=== PATIENT | male | born 1975 | race Caucasian/White ===

== ENCOUNTER 2018-06-05 12:28 | Inpatient (IN) | payer BC, OTHER ==
[2018-06-05 12:43] VITALS: BMI 37.2
--- NOTE | 2018-06-05 13:43 | PDOC ---
History of Present Illness <Marina Kingston - Last Filed: 06/05/18 16:17> - History of Present Illness Initial Comments: Vishal Avila is a 42yo man with a PMH of gastric bypass (3 years ago), uncontrolled DM (not on meds, A1C 8.9 on 06/01/18), HTN (not on meds) who presents from his development technical lead's office for a left plantar foot wound. Mr Avila reports that he noticed the wound between 1-2 weeks ago. Last Tuesday, he went to the ED at [facility] for evaluation. He was told that the wound was "pre-infected" and prescribed an antibiotic, which he has since completed. He went to see his development technical lead on , and at that time he was told that he would need an outpatient MRI for evaluation. He was prescribed a second, additional antibiotic, which he is sitll completing. Mr Avila does not remember the names of either antibiotic. Today, he went back to the development technical lead's office for follow up, and he saw a different development technical lead. He was referred to the ED for admission to the hospital as well as ID and vascular surgery consults. Mr Avila states that he has noticed that the wound is draining clear to yellowish fluid and is malodorous. He does not remember any injury or insult to the foot prior to the wound occurring. He has never noticed any purulent (white , thick, cloudy) drainage. He has not noticed any surrounding redness, red streaking, or swelling. He denies any fevers though does note shaking chills a week ago Tuesday prior to starting antibiotics, and he reports that this is also what happened when he had staph bacteremia due to a right foot wound last year. Otherwise he has felt well recently. <Amberly Moore - Last Filed: 06/06/18 00:38> - General Chief Complaint: Wound Stated Complaint: PCP SENT FOR ADMIN Time Seen by Provider: 06/05/18 13:42 Past History <Marina Kingston - Last Filed: 06/05/18 16:17> - Past Medical History COPD: No Diabetes: Yes (no meds, chr wounds both feet) Other medical history: pancreatitis, meningitis, renal stones - Surgical History Appendectomy: Yes GI Surgery: Yes (gastric bypass) - Suicide/Smoking/Psychosocial Hx Smoking History: Never smoked <Amberly Moore - Last Filed: 06/06/18 00:38> - Past Medical History Allergies/Adverse Reactions: Allergies Allergy/AdvReac Type Severity Reaction Status Date / Time No Known Allergies Allergy Verified 06/05/18 12:41 Home Medications: Ambulatory Orders NK [No Known Home Medication] 06/05/18 Review of Systems - Review of Systems Comments:: General: No fevers, no chills, no weight or appetite change, no malaise HEENT: No changes in vision, no changes in hearing, no congestion, no sore throat CV: No chest pain, no palpitations, no LE edema Pulm: No SOB, no cough, no wheezing GI: No nausea or vomiting, no change in bowel habits, no melena : No frequency, no urgency, no dysuria Musc: No back pain, no joint swelling, no recent injury Skin: No rash, no lesions, no erythema Endo: No excessive thirst, no heat/cold intolerance Heme: No unusual bruising or bleeding, no swollen glands Neuro: No syncope, no numbness/tingling, no focal weakness Vasc: No claudication Psych: No recent change in mood, no SI or HI. +anxiety <Amberly Moore - Last Filed: 06/06/18 00:38> *Physical Exam - Vital Signs Last Vital Signs Temp Pulse Resp BP Pulse Ox 98 F 82 16 170/92 97 06/05/18 12:42 06/05/18 12:42 06/05/18 12:42 06/05/18 12:42 06/05/18 12:42 <Marina Kingston - Last Filed: 06/05/18 16:17> - Vital Signs Last Vital Signs Temp Pulse Resp BP Pulse Ox 98 F 82 16 170/92 97 06/05/18 12:42 06/05/18 12:42 06/05/18 12:42 06/05/18 12:42 06/05/18 12:42 - Physical Exam Comments: General: Comfortable, no acute distress HEENT: PERRL, EOMI, MMM, voice normal, normal neck ROM, no LAD Cards: RRR, no murmur appreciated Pulm: Comfortable on room air, clear to auscultation bilaterally Abd: Soft, nontender, nondistended Ext: Atraumatic. No LE edema. ROM intact. Strength 5/5 and equal bilaterally L foot with wound to plantar surface, proximal to 2nd toe, appears to be superficial to tarsal-metatarsal joint. Thick callus surrounding wound. Minimal drainage. No surrounding erythema or edema noted. Vasc: Extremities WWP. Skin: Normal color, no rashes or lesions. L foot wound as described above. Neuro: A&Ox3, CN grossly intact, normal speech, motor/sensory grossly intact and symmetric Psych: Mood appropriate to situation <Amberly Moore - Last Filed: 06/06/18 00:38> ED Treatment Course - LABORATORY CBC & Chemistry Diagram: 06/05/18 14:43 06/05/18 14:43 - ADDITIONAL ORDERS Additional order review: Laboratory Results 06/05/18 14:43 Sodium 140 Potassium 4.6 Chloride 103 Carbon Dioxide 29 Anion Gap 8 BUN 17 Creatinine 0.8 Creat Clearance w eGFR > 60 Random Glucose 207 H Calcium 9.1 Total Bilirubin 0.6 AST 19 ALT 47 Alkaline Phosphatase 105 C-Reactive Protein 0.5 H Total Protein 8.1 Albumin 3.8 06/05/18 14:43 RBC 5.00 MCV 84.9 MCHC 33.0 RDW 13.6 MPV 9.5 Neutrophils % 66.6 Lymphocytes % 22.1 Monocytes % 7.4 Eosinophils % 3.2 Basophils % 0.7 - Medications Given in the ED: ED Medications Discontinued Medications Generic Name Dose Route Start Last Admin Trade Name Freq PRN Reason Stop Dose Admin Piperacillin Sod/Tazobactam 50 mls @ 100 mls/hr 06/05/18 15:38 06/05/18 15:55 Sod 3.375 gm/ Dextrose IVPB 06/05/18 16:07 100 mls/hr ONCE ONE Administration Protocol - Consult/PCP Time Called: 16:05 (Paged Dr. Romero) <Marina Kingston - Last Filed: 06/05/18 16:17> - LABORATORY CBC & Chemistry Diagram: 06/05/18 14:43 06/05/18 14:43 <Amberly Moore - Last Filed: 06/06/18 00:38> Medical Decision Making - Medical Decision Making 06/05/18 14:30 Vishal Avila is a 42yo man with a PMH of uncontrolled DM and HTN who presents from his development technical lead's office for workup of a left plantar diabetic foot wound. - Lab report from 06/01 (brought by patient) with WBC 8.7, ESR 45, CRP 14.5, A1C 8.9 - CBC, CMP, ESR, CRP, foot xray, blood cultures ordered - Per development technical lead, would like admission to Dr Romero's service with ID, wound care, and Dr Hansen on consult - Will contact Dr Romero and consults once lab results return 06/05/18 15:45 - Page out to Dr Romero. Consults placed - Zosyn started per Dr Vera - Labs notable for CRP 0.5 (compared to 1.45 on 06/01) 06/05/18 17:38 - Spoke to Dr Romero. Will accept for admission. Requests Dr Khan for ID - Patient updated regarding admission. He states understanding and agrees. Seen and discussed with Dr Vera. Amberly Mooer PGY1 <Amberly Moore - Last Filed: 06/06/18 00:38> *DC/Admit/Observation/Transfer <Marina Kingston - Last Filed: 06/05/18 16:17> - Discharge Dispostion Decision to Admit order: Yes <Amberly Moore - Last Filed: 06/06/18 00:38> Diagnosis at time of Disposition: Diabetic foot ulcer
--- NOTE | 2018-06-05 14:56 | PDOC ---
Attending Attestation - Resident Resident Name: Amberly Moore - ED Attending Attestation I have performed the following: I have examined & evaluated the patient, The case was reviewed & discussed with the resident, I agree w/resident's findings & plan, Exceptions are as noted - Medical Decision Making 06/05/18 14:56 A portion of this note was documented by scribe services under my direction. I have reviewed the details of the note, within reason, and agree with the documentation with the following case summary and management plan written by me. Patient treated in the ED. Nursing notes are reviewed and incorporated into the medical decision-making. Vital signs reviewed. Peripheral IV access obtained by the nurse, laboratory studies are drawn and sent, reviewed and interpreted by myself. Vital Signs Temp Pulse Resp BP Pulse Ox 98 F 82 16 170/92 97 06/05/18 12:42 06/05/18 12:42 06/05/18 12:42 06/05/18 12:42 06/05/18 12:42 42-year-old male with past medical history of gastric bypass, hypertension, diabetes presents with left foot wound. Last week, the patient developed a blister on the plantar surface left foot was initiate blister. Patient was unsure of how it occurred. Stated it popped open. Since then he's been on 2 antibiotics but the wound has progressively worsened. Patient has seen his aluminum siding installer, Dr. Hansen was sent the patient to the ER for a foot infection and rule out osteoarthritis. Denies fevers or chills. We'll obtain labs including ESR CRP and blood cultures. We'll need to initiate IV antibiotics. Admit the patient for foot infection and cellulitis. <Toi Vera - Last Filed: 06/05/18 14:48> - HPI HPI: This patient is a 42 year old male , with PMHx of DM (not medically controlled) , HTN, who presents with left foot wound. Patient states that 1 week ago he went to the ER at [facility] for his left foot wound. In the past, patient notes that last January he was admitted for an infection in his right foot. He was d/c on oral antibiotics for a month. Patient states that his diabetes levels were at a 5-6 when he was last admitted but currently he is at an 8. Currently, he states that the wound is on the bottom of his left foot and initially looked like a blister that had popped. He notes some foul-smelling clear fluid drainage. He states that he was give antibiotics but he does not remember the name. He states that he followed up with a Animal Eviscerator at [place] last who gave him an additional antibiotic and was told to complete both courses. He was told come to the ER for admission and r/o osteomyelitis. He also currently notes a pulsing pain on his 2nd left toe. He states he hasnt eaten anything except for yogurt this morning with his antibiotics. Podiatry - Dr. Brewer PCP: Dr. Dewey ([facility]) Admit to Dr. Romero. ID - Dr. Iglesias - Physicial Exam PE: GENERAL: Awake, alert, and fully oriented, in no acute distress HEAD: No signs of trauma EYES: PERRLA, EOMI, sclera anicteric, conjunctiva clear ABDOMEN: Soft, nontender. No guarding, no rebound. No masses EXTREMITIES: Normal range of motion, no edema. No clubbing or cyanosis. No cords, erythema, or tenderness NEUROLOGICAL: Cranial nerves II through XII grossly intact. Normal speech, normal gait SKIN: 3x3 cm indurated open wound with surrounding errythema on plantar surface of left foot. <Marina Kingston - Last Filed: 06/05/18 15:28>
[2018-06-05 15:03] LABS: BASO % 0.7 % (0-2.0); EOS % 3.2 % (0-4.5); HEMATOCRIT 42.4 % (35.4-49); LYMPH % 22.1 % (8-40); MEAN CELL VOLUME 84.9 fl (80-96); MEAN PLT VOLUME 9.5 fl (7.5-11.1); MONO % 7.4 % (3.8-10.2); NEUT % 66.6 % (42.8-82.8); PLATELET COUNT 258 K/MM3 (134-434); RDW 13.6 % (11.9-15.9); WHITE BLOOD COUNT 9.1 K/mm3 (4.0-10.0)
[2018-06-05 15:30] LABS: ALBUMIN 3.8 g/dl (3.4-5.0); ALK PHOS 105 U/L (45-117); ANION GAP 8 MMOL/L (8-16); BILIRUBIN,TOTAL 0.6 mg/dL (0.2-1); BLOOD UREA NITROGEN 17 mg/dL (7-18); CALCIUM 9.1 mg/dL (8.5-10.1); CHLORIDE 103 mmol/L (98-107); CO2 29 mmol/L (21-32); CREATININE 0.8 mg/dL (0.55-1.3); GLUCOSE,RANDOM 207 mg/dL (74-106); POTASSIUM 4.6 mmol/L (3.5-5.1); SGOT/AST 19 U/L (15-37); SGPT/ALT 47 U/L (13-61); SODIUM 140 mmol/L (136-145); TOT PROT 8.1 g/dl (6.4-8.2)
[2018-06-05] MEDS ORDERED: PIPERACILLIN/TAZOB 3.375 GM 3.375 GM in DEXTROSE 5%-WATER - 50 ML IVPB ONE (15:38)
[2018-06-05] MEDS ORDERED: PIPERACILLIN/TAZOB 3.375 GM 3.375 GM/50 ML BAG IVPB ONE (15:45)
[2018-06-05 16:50] LABS: ERYTHROCYTE SEDIMENTATION RATE 27 mm/hr (0-10)
--- NOTE | 2018-06-05 21:06 | HP ---
Admitting History and Physical - Admission History of Present Illness: 42-year-old male with past medical history of gastric bypass, hypertension, DM since age of 21, diabetic neuropathy presents with left foot wound. Last week, the patient developed a blister on the plantar surface left foot. Patient was unsure of how it occurred. Stated it popped open. Since then he's been on 2 antibiotics but the wound has progressively worsened, and developed foul smelling d/c. Patient has seen his jewelry setter, Dr. Hansen was sent the patient to the ER for a foot infection and rule out osteomyelitis. Patient reports episode of shaking chills on Tuesday SHIP JOINER, while walking around in [facility]. Denies fever. History Source: Patient, Medical Record Limitations to Obtaining History: No Limitations - Past Medical History Cardiovascular: Yes: Murmur Gastrointestinal: Yes: Pancreatitis (2/2 to hyperlipedimia ( trig >5000)) Infectious Disease: Yes: Other (lymes) Psych: Yes: Anxiety Endocrine: Yes: Diabetes Mellitus - Past Surgical History Past Surgical History: Yes: Appendectomy, Bariatric Surgery - Smoking History Smoking history: Never smoked - Alcohol/Substance Use Hx Alcohol Use: Yes History of Substance Use: reports: None - Social History Usual Living Arrangement: Yes: With Significant Other ADL: Family Assistance History of Recent Travel: No Home Medications - Allergies Allergies/Adverse Reactions: Allergies Allergy/AdvReac Type Severity Reaction Status Date / Time No Known Allergies Allergy Verified 06/05/18 12:41 - Home Medications Home Medications: Ambulatory Orders NK [No Known Home Medication] 06/05/18 Review of Systems - Review of Systems Constitutional: reports: Chills, Malaise. denies: Fever, Night Sweats Eyes: reports: No Symptoms HENT: reports: No Symptoms Neck: reports: No Symptoms Cardiovascular: reports: No Symptoms Respiratory: reports: No Symptoms Gastrointestinal: reports: No Symptoms Genitourinary: reports: No Symptoms Breasts: reports: No Symptoms Reported Musculoskeletal: reports: No Symptoms Integumentary: reports: Wound (plantar aspect of left foot) Neurological: reports: No Symptoms Endocrine: reports: No Symptoms Hematology/Lymphatic: reports: No Symptoms Psychiatric: reports: No Symptoms Physical Examination Vital Signs: Vital Signs Temperature 97.3 F L 06/05/18 18:00 Pulse Rate 80 06/05/18 18:00 Respiratory Rate 18 06/05/18 18:00 Blood Pressure 153/100 06/05/18 18:00 O2 Sat by Pulse Oximetry (%) 97 06/05/18 18:00 Constitutional: Yes: Well Nourished, No Distress, Obese Eyes: Yes: Conjunctiva Clear, EOM Intact HENT: Yes: Atraumatic, Normocephalic Neck: Yes: Supple, Trachea Midline Cardiovascular: Yes: Regular Rate and Rhythm Respiratory: Yes: Regular Gastrointestinal: Yes: Normal Bowel Sounds ...Rectal Exam: Yes: Deferred Renal/: Yes: WNL Breast(s): Yes: WNL Musculoskeletal: Yes: WNL Extremities: Yes: WNL, Other (plantar aspect of left foot open wound --) Edema: No Peripheral Pulses WNL: Yes Peripheral Pulses: Left Radial: 2+, Right Radial: 2+, Left Doralis Pedis: 1+, Right Dorsalis Pedis: 1+, Left Femoral: 2+, Right Femoral: 2+ Integumentary: Yes: WNL Wound/Incision: Yes: Open to air. No: Draining, Reddened, Bleeding Neurological: Yes: WNL ...Motor Strength: WNL Psychiatric: Yes: WNL Labs: CBC, BMP 06/05/18 14:43 06/05/18 14:43 Problem List - Problems (1) Diabetic foot ulcer Code(s): E11.621 - TYPE 2 DIABETES MELLITUS WITH FOOT ULCER; L97.509 - NON- PRESSURE CHRONIC ULCER OTH PRT UNSP FOOT W UNSP SEVERITY Qualifiers: Diabetic foot ulcer location: other Diabetes mellitus type: type 2 Laterality: left (2) Diabetes mellitus Code(s): E11.9 - TYPE 2 DIABETES MELLITUS WITHOUT COMPLICATIONS Qualifiers: Diabetes mellitus type: type 2 Diabetes mellitus intermediate insulin use: with terminal system operator use Diabetes mellitus complication detail: with other skin ulcer (3) Neuropathy due to type 2 diabetes mellitus Code(s): E11.40 - TYPE 2 DIABETES MELLITUS WITH DIABETIC NEUROPATHY, UNSP (4) Obesity Code(s): E66.9 - OBESITY, UNSPECIFIED Qualifiers: Obesity type: due to excess calories Obesity classification: adult class 1 (BMI 30 - 34.9) Serious obesity comorbidity presence: with serious comorbidity
[2018-06-05] MEDS: DOCUSATE SODIUM 100 MG CAPSULE (FP) PO SCH (23:34)
[2018-06-06] MEDS: INSULIN SLIDING SCALE (NOVOLOG) 1 VIAL SQ SCH ×2 (06:18→17:27)
[2018-06-06 08:12] LABS: HEMATOCRIT 39.5 % (35.4-49); HEMOGLOBIN 12.9 GM/dL (11.7-16.9); MCH 27.5 pg (25.7-33.7); MCHC 32.6 g/dl (32.0-35.9); MEAN CELL VOLUME 84.3 fl (80-96); MEAN PLT VOLUME 9.5 fl (7.5-11.1); PLATELET COUNT 235 K/MM3 (134-434); RBC 4.69 M/mm3 (4.00-5.60); RDW 13.4 % (11.9-15.9)
[2018-06-06 08:37] LABS: ANION GAP 8 MMOL/L (8-16); BLOOD UREA NITROGEN 18 mg/dL (7-18); CALCIUM 8.5 mg/dL (8.5-10.1); CHLORIDE 103 mmol/L (98-107); CO2 29 mmol/L (21-32); GLUCOSE,RANDOM 221 mg/dL (74-106); POTASSIUM 4.5 mmol/L (3.5-5.1); SODIUM 140 mmol/L (136-145)
[2018-06-06] MEDS: DOCUSATE SODIUM 100 MG CAPSULE (FP) PO SCH ×3 (10:41→21:04)
--- NOTE | 2018-06-06 10:43 | PN ---
Progress Note (short form) - Note Progress Note: patient seen and examined in room he is able provides complete information / known to be Diabetic since age of 21 and persistently elevated A1c ( about 14 ) until bypass surgery 3 yrs ago. Since his bariatric surgery he has maintained A1c between 5-6, until recently. He reports has lost feeling in his legs, for many years now, and has had eye problem "already", for which he follows up with opthalmology. Admits poor compliance with diet and medications of last yr. patient found laying in bed / comfortable / denies pain Vital Signs Period Temp Pulse Resp BP Sys/Membreno Pulse Ox Last 24 Hr 97.3 F-98.3 F 74-82 16-20 137-170/76-100 97-97 neck supple no nodes heart S1/S2 2/6 DENIS lungs clear bilat abd obese/ soft non tender / no guarding ext no edema +1 bilat dorsalis left for plantar aspect open wound about 1 cm in diameter / non foul smelling no erythema / no streaking CBC, BMP 06/06/18 07:00 06/06/18 07:00 Laboratory Last Values WBC 9.0 K/mm3 (4.0-10.0) 06/06/18 07:00 RBC 4.69 M/mm3 (4.00-5.60) 06/06/18 07:00 Hgb 12.9 GM/dL (11.7-16.9) 06/06/18 07:00 Hct 39.5 % (35.4-49) 06/06/18 07:00 MCV 84.3 fl (80-96) 06/06/18 07:00 MCH 27.5 pg (25.7-33.7) 06/06/18 07:00 MCHC 32.6 g/dl (32.0-35.9) 06/06/18 07:00 RDW 13.4 % (11.9-15.9) 06/06/18 07:00 Plt Count 235 K/MM3 (134-434) 06/06/18 07:00 MPV 9.5 fl (7.5-11.1) 06/06/18 07:00 Absolute Neuts (auto) 6.1 K/mm3 (1.5-8.0) 06/05/18 14:43 Neutrophils % 66.6 % (42.8-82.8) 06/05/18 14:43 Lymphocytes % 22.1 % (8-40) 06/05/18 14:43 Monocytes % 7.4 % (3.8-10.2) 06/05/18 14:43 Eosinophils % 3.2 % (0-4.5) 06/05/18 14:43 Basophils % 0.7 % (0-2.0) 06/05/18 14:43 Nucleated RBC % 0 % (0-0) 06/05/18 14:43 ESR 27 mm/hr (0-10) H 06/05/18 14:43 Sodium 140 mmol/L (136-145) 06/06/18 07:00 Potassium 4.5 mmol/L (3.5-5.1) 06/06/18 07:00 Chloride 103 mmol/L (98-107) 06/06/18 07:00 Carbon Dioxide 29 mmol/L (21-32) 06/06/18 07:00 Anion Gap 8 MMOL/L (8-16) 06/06/18 07:00 BUN 18 mg/dL (7-18) 06/06/18 07:00 Creatinine 1.0 mg/dL (0.55-1.3) 06/06/18 07:00 Creat Clearance w eGFR > 60 (>60) 06/06/18 07:00 POC Glucometer 215 UNITS (80-120) 06/06/18 06:17 Random Glucose 221 mg/dL (74-106) H 06/06/18 07:00 Lactic Acid 1.2 mmol/L (0.4-2.0) 06/05/18 15:08 Calcium 8.5 mg/dL (8.5-10.1) 06/06/18 07:00 Magnesium 2.0 mg/dL (1.8-2.4) 06/06/18 07:00 Total Bilirubin 0.6 mg/dL (0.2-1) 06/05/18 14:43 AST 19 U/L (15-37) 06/05/18 14:43 ALT 47 U/L (13-61) 06/05/18 14:43 Alkaline Phosphatase 105 U/L (45-117) 06/05/18 14:43 C-Reactive Protein 0.5 MG/DL (0.00-0.3) H 06/05/18 14:43 Total Protein 8.1 g/dl (6.4-8.2) 06/05/18 14:43 Albumin 3.8 g/dl (3.4-5.0) 06/05/18 14:43 Active Medications Docusate Sodium (Colace -) 200 mg PO BID [facility] Last Admin: 06/05/18 23:34 Dose: Not Given Insulin Aspart (Novolog Vial Sliding Scale -) 1 vial SQ BIDAC [facility]; Protocol Last Admin: 06/06/18 06:18 Dose: 4 units # diabetic foot ulcer failure of PO abx IV abx per ID podiatry follow up Vascular consult # Diabetes Mellitus start PO meds statins / ACEi / metformin A1c diabetic education # hyperlipedimia start statins # Diabetic neuropathy goal to maintain A1c = 6 Problem List - Problems (1) Diabetic foot ulcer Code(s): E11.621 - TYPE 2 DIABETES MELLITUS WITH FOOT ULCER; L97.509 - NON- PRESSURE CHRONIC ULCER OTH PRT UNSP FOOT W UNSP SEVERITY Qualifiers: Diabetic foot ulcer location: other Diabetes mellitus type: type 2 Laterality: left (2) Diabetes mellitus Code(s): E11.9 - TYPE 2 DIABETES MELLITUS WITHOUT COMPLICATIONS Qualifiers: Diabetes mellitus type: type 2 Diabetes mellitus snf insulin use: with snf use Diabetes mellitus complication detail: with other skin ulcer (3) Neuropathy due to type 2 diabetes mellitus Code(s): E11.40 - TYPE 2 DIABETES MELLITUS WITH DIABETIC NEUROPATHY, UNSP (4) Obesity Code(s): E66.9 - OBESITY, UNSPECIFIED Qualifiers: Obesity type: due to excess calories Obesity classification: adult class 1 (BMI 30 - 34.9) Serious obesity comorbidity presence: with serious comorbidity
[2018-06-06] MEDS: ASPIRIN 81 MG CHEWABLE TABLETS PO SCH (11:45)
[2018-06-06] MEDS: LISINOPRIL 5 MG TABLET (FP) PO SCH (11:45)
--- NOTE | 2018-06-06 12:55 | CONSULT ---
Consult Consult Specialty:: Vascular Surgery - History of Present Illness History of Present Illness: 42 year old man with diabetes and peripheral neuropathy is admitted with a plantar ulcer of the left foot. He had infection of the right otes last spring which required long-term IV antibiotics. He does not smoke. He denies a history of periheral arterial disease. He has no foot pain. - History Source History Provided By: Patient Limitations to Obtaining History: No Limitations - Past Medical History Cardio/Vascular: Yes: Murmur Gastrointestinal: Yes: Pancreatitis (2/2 to hyperlipedimia ( trig >5000)) Infectious Disease: Yes: Other (lymes) Psych: Yes: Anxiety Endocrine: Yes: Diabetes Mellitus - Past Surgical History Past Surgical History: Yes: Appendectomy, Bariatric Surgery - Alcohol/Substance Use Hx Alcohol Use: Yes History of Substance Use: reports: None - Smoking History Smoking history: Never smoked - Social History ADL: Family Assistance History of Recent Travel: No Home Medications - Allergies Allergies/Adverse Reactions: Allergies Allergy/AdvReac Type Severity Reaction Status Date / Time No Known Allergies Allergy Verified 06/05/18 12:41 - Home Medications Home Medications: Ambulatory Orders NK [No Known Home Medication] 06/05/18 Physical Exam Vital Signs: Vital Signs Temperature 98.3 F 06/06/18 12:00 Pulse Rate 85 06/06/18 12:00 Respiratory Rate 19 06/06/18 12:00 Blood Pressure 140/79 06/06/18 12:00 O2 Sat by Pulse Oximetry (%) 99 06/06/18 09:00 Constitutional: Yes: Well Nourished, No Distress Cardiovascular: Yes: WNL Gastrointestinal: Yes: Soft Extremities: Yes: WNL Edema: No Peripheral Pulses WNL: Yes (Palpable DP and PT both feet) Integumentary: Yes: Other (Left plantar callused ulcer under 3rd metatarsal head with local erythema.) Labs: CBC, BMP 06/06/18 07:00 06/06/18 07:00 Problem List - Problems (1) Diabetic foot ulcer Assessment/Plan: There is no evidence for significant arterial disease at this time. The left plantar wound is related to his underlying diabetic neuropathy. There is no indication for vascular testing or intervention at this time. Code(s): E11.621 - TYPE 2 DIABETES MELLITUS WITH FOOT ULCER; L97.509 - NON- PRESSURE CHRONIC ULCER OTH PRT UNSP FOOT W UNSP SEVERITY Qualifiers: Diabetic foot ulcer location: other Diabetes mellitus type: type 2 Laterality: left Non-pressure ulcer stage: with fat layer exposed Qualified Code(s): E11.621 - Type 2 diabetes mellitus with foot ulcer; L97.522 - Non- pressure chronic ulcer of other part of left foot with fat layer exposed
--- NOTE | 2018-06-06 14:14 | CON.ID ---
Consult Consult Specialty:: infectious diseases Referred by:: Reason for Consultation:: r/o osteo of the foot - History of Present Illness Chief Complaint: non healing ulcer of the foot History of Present Illness: 42-year-old male with past medical history of gastric bypass, hypertension, DM since age of 21, diabetic neuropathy presents with left foot wound. Last week, the patient developed a blister on the plantar surface left foot. Patient was unsure of how it occurred. patient had seen multiple doctors and was given multiples abx patient then went to dr Hansen and he directed the patient to the hospital Patient reports episode of shaking chills on Tuesday [employer], he also mentions that he had foot infection of the rt leg previously which gave him bacteremia and patient had to be admitted in the hospital for nearly 9 days a he was very septic - History Source History Provided By: Patient Limitations to Obtaining History: No Limitations - Past Medical History Cardio/Vascular: Yes: Murmur Gastrointestinal: Yes: Pancreatitis (2/2 to hyperlipedimia ( trig >5000)) Infectious Disease: Yes: Other (lymes) Psych: Yes: Anxiety Endocrine: Yes: Diabetes Mellitus - Past Surgical History Past Surgical History: Yes: Appendectomy, Bariatric Surgery - Alcohol/Substance Use Hx Alcohol Use: Yes History of Substance Use: reports: None - Smoking History Smoking history: Never smoked - Social History ADL: Family Assistance History of Recent Travel: No Home Medications - Allergies Allergies/Adverse Reactions: Allergies Allergy/AdvReac Type Severity Reaction Status Date / Time No Known Allergies Allergy Verified 06/05/18 12:41 - Home Medications Home Medications: Ambulatory Orders NK [No Known Home Medication] 06/05/18 Review of Systems - Review of Systems Constitutional: reports: Chills Eyes: reports: No Symptoms HENT: reports: No Symptoms Neck: reports: No Symptoms Cardiovascular: reports: No Symptoms Respiratory: reports: No Symptoms Gastrointestinal: reports: No Symptoms Genitourinary: reports: No Symptoms Musculoskeletal: reports: Extremity Pain, Other Integumentary: reports: Erythema (of the plantar surface of the left foot), Wound (plantar surface of left foot) Neurological: reports: No Symptoms Endocrine: reports: No Symptoms Hematology/Lymphatic: reports: No Symptoms Psychiatric: reports: No Symptoms Physical Exam Vital Signs: Vital Signs Temperature 98.3 F 06/06/18 12:00 Pulse Rate 85 06/06/18 12:00 Respiratory Rate 19 06/06/18 12:00 Blood Pressure 140/79 06/06/18 12:00 O2 Sat by Pulse Oximetry (%) 99 06/06/18 09:00 Constitutional: Yes: Well Nourished, No Distress, Calm Cardiovascular: Yes: Regular Rate and Rhythm Respiratory: Yes: Regular, CTA Bilaterally Gastrointestinal: Yes: Normal Bowel Sounds, Soft Musculoskeletal: Yes: WNL Extremities: Yes: Other Integumentary: Yes: Other Wound/Incision: Yes: Open to air Neurological: Yes: Alert, Oriented Psychiatric: Yes: Alert, Oriented Labs: CBC, BMP 06/06/18 07:00 06/06/18 07:00 Imaging - Results X-ray: Report Reviewed, Image Reviewed Assessment/Plan patient coming wiht non healing ulcer of the left foot wound not healing for a long time now patient had chills feels better now r/o osteo left foot wound infection dm hld htn plan will start patient on zosyn wound cx ordered mri of the foot wound care once we have everything will plan further management
--- NOTE | 2018-06-06 14:32 | CONSULT ---
Consult Consult Specialty:: Podiatry Reason for Consultation:: Chronic wound left foot - History of Present Illness Chief Complaint: Chronic wound left foot History of Present Illness: Patient states he went to [facility] was put on antibiotics. Then was seen By Dr. Pastor and another antibiotic was added. Presented to me on Tuesday and was admitted for r/o OM, uncontrolled diabetes. - History Source History Provided By: Patient - Past Medical History Cardio/Vascular: Yes: Murmur Gastrointestinal: Yes: Pancreatitis (2/2 to hyperlipedimia ( trig >5000)) Infectious Disease: Yes: Other (lymes) Psych: Yes: Anxiety Endocrine: Yes: Diabetes Mellitus - Past Surgical History Past Surgical History: Yes: Appendectomy, Bariatric Surgery - Alcohol/Substance Use Hx Alcohol Use: Yes History of Substance Use: reports: None - Smoking History Smoking history: Never smoked - Social History ADL: Family Assistance History of Recent Travel: No Home Medications - Allergies Allergies/Adverse Reactions: Allergies Allergy/AdvReac Type Severity Reaction Status Date / Time No Known Allergies Allergy Verified 06/05/18 12:41 - Home Medications Home Medications: Ambulatory Orders NK [No Known Home Medication] 06/05/18 Review of Systems - Review of Systems Endocrine: reports: Other (uncontrolled diabetes) Physical Exam Vital Signs: Vital Signs Temperature 98.3 F 06/06/18 12:00 Pulse Rate 85 06/06/18 12:00 Respiratory Rate 19 06/06/18 12:00 Blood Pressure 140/79 06/06/18 12:00 O2 Sat by Pulse Oximetry (%) 99 06/06/18 09:00 Extremities: Yes: Other (wound left foot infected, +foul odor, +cellulitis,) Labs: CBC, BMP 06/06/18 07:00 06/06/18 07:00 Imaging - Results X-ray: Report Reviewed, Image Reviewed Assessment/Plan chronic diabetic wound left foot uncontrolled diabetes ID Consult Dr. Iglesias. Patient seen with him and tx plan discussed. Vascular consult done not read and appreciated. Endocrinology consult ordered. MRI. If OM HBO and IVABX. If no osteo will heal up with abx and wc and plan to shave condyles surgically outpatient.
[2018-06-06] MEDS: PIPERACILLIN/TAZOB 3.375 GM 3.375 GM in DEXTROSE 5%-WATER - 50 ML IVPB SCH ×2 (15:30→19:00)
[2018-06-06] MEDS ORDERED: DEXTROSE 5%-WATER - 50 ML IVPB ONE ×2 (15:49→17:04)
[2018-06-06] MEDS ORDERED: PIPERACILLIN/TAZOBACTAM 3.375 GM VIAL IVPB ONE ×2 (15:49→17:04)
[2018-06-06] MEDS: metFORMIN HCL 500 MG TABLET (FP) PO SCH (16:08)
[2018-06-06] MEDS: ATORVASTATIN CA 40 MG TABLET (FP) PO SCH (21:02)
[2018-06-07] MEDS ORDERED: DEXTROSE 5%-WATER - 50 ML IVPB ONE ×3 (01:50→16:53)
[2018-06-07] MEDS ORDERED: PIPERACILLIN/TAZOBACTAM 3.375 GM VIAL IVPB ONE ×3 (01:50→16:53)
[2018-06-07] MEDS: PIPERACILLIN/TAZOB 3.375 GM 3.375 GM in DEXTROSE 5%-WATER - 50 ML IVPB SCH ×3 (02:13→17:28)
[2018-06-07] MEDS: metFORMIN HCL 500 MG TABLET (FP) PO SCH ×2 (06:32→17:22)
[2018-06-07] MEDS: INSULIN SLIDING SCALE (NOVOLOG) 1 VIAL SQ SCH ×3 (06:33→21:20)
[2018-06-07 08:03] LABS: BASO % 0.5 % (0-2.0); EOS % 3.3 % (0-4.5); HEMATOCRIT 40.3 % (35.4-49); LYMPH % 25.2 % (8-40); MCH 27.7 pg (25.7-33.7); MCHC 32.3 g/dl (32.0-35.9); MEAN CELL VOLUME 85.5 fl (80-96); MEAN PLT VOLUME 9.6 fl (7.5-11.1); PLATELET COUNT 238 K/MM3 (134-434); RBC 4.71 M/mm3 (4.00-5.60); RDW 13.7 % (11.9-15.9); WHITE BLOOD COUNT 9.9 K/mm3 (4.0-10.0)
[2018-06-07 08:34] LABS: ALBUMIN 3.3 g/dl (3.4-5.0); ALK PHOS 91 U/L (45-117); ANION GAP 6 MMOL/L (8-16); BILIRUBIN,TOTAL 0.6 mg/dL (0.2-1); BLOOD UREA NITROGEN 16 mg/dL (7-18); CALCIUM 8.7 mg/dL (8.5-10.1); CHLORIDE 102 mmol/L (98-107); CHOLESTEROL 184 mg/dL (50-200); CO2 30 mmol/L (21-32); GLUCOSE,RANDOM 218 mg/dL (74-106); HDL CHOLESTEROL 36 mg/dL (40-60); POTASSIUM 4.5 mmol/L (3.5-5.1); SGOT/AST 14 U/L (15-37); SGPT/ALT 37 U/L (13-61); SODIUM 138 mmol/L (136-145); TOT PROT 7.1 g/dl (6.4-8.2); TRIGLYCERIDES 199 mg/dL (0-150)
[2018-06-07] MEDS: ASPIRIN 81 MG CHEWABLE TABLETS PO SCH (10:11)
[2018-06-07] MEDS: LISINOPRIL 5 MG TABLET (FP) PO SCH ×2 (10:11→21:07)
[2018-06-07] MEDS: DOCUSATE SODIUM 100 MG CAPSULE (FP) PO SCH ×2 (10:12→21:05)
--- NOTE | 2018-06-07 10:24 | PN ---
Progress Note (short form) - Note Progress Note: patient seen and examined in room he is able provides complete information / known to be Diabetic since age of 21 and persistently elevated A1c ( about 14 ) until bypass surgery 3 yrs ago. Since his bariatric surgery he has maintained A1c between 5-6, until recently. He reports has lost feeling in his legs, for many years now, and has had eye problem "already", for which he follows up with opthalmology. Admits poor compliance with diet and medications of last yr. patient found laying in bed / comfortable / denies pain Vital Signs Period Temp Pulse Resp BP Sys/Membreno Pulse Ox Last 24 Hr 97.3 F-98.3 F 74-82 16-20 137-170/76-100 97-97 neck supple no nodes heart S1/S2 2/6 DENIS lungs clear bilat abd obese/ soft non tender / no guarding ext no edema +1 bilat dorsalis left for plantar aspect open wound about 1 cm in diameter / non foul smelling no erythema / no streaking CBC, BMP 06/07/18 06:50 06/07/18 06:50 Microbiology 06/05/18 14:38 Blood - Peripheral Venous Blood Culture - Preliminary NO GROWTH OBTAINED AFTER 24 HOURS, INCUBATION TO CONTINUE FOR 4 DAYS. 06/05/18 14:43 Blood - Peripheral Venous Blood Culture - Preliminary NO GROWTH OBTAINED AFTER 24 HOURS, INCUBATION TO CONTINUE FOR 4 DAYS. Active Medications Aspirin (Asa -) 81 mg PO DAILY [facility] Last Admin: 06/07/18 10:11 Dose: 81 mg Atorvastatin Calcium (Lipitor -) 40 mg PO HS [facility] Last Admin: 06/06/18 21:02 Dose: 40 mg Docusate Sodium (Colace -) 200 mg PO BID [facility] Last Admin: 06/07/18 10:12 Dose: Not Given Piperacillin Sod/Tazobactam (Sod 3.375 gm/ Dextrose) 50 mls @ 100 mls/hr IVPB Q8H-IV [facility]; Protocol Last Admin: 06/07/18 10:12 Dose: 100 mls/hr Insulin Aspart (Novolog Vial Sliding Scale -) 1 vial SQ BIDAC [facility]; Protocol Last Admin: 06/07/18 06:33 Dose: 4 units Lisinopril (Prinivil) 5 mg PO DAILY [facility] Last Admin: 06/07/18 10:11 Dose: 5 mg Metformin HCl (Glucophage -) 500 mg PO BID@0700,1630 [facility] Last Admin: 06/07/18 06:32 Dose: 500 mg # diabetic foot ulcer failure of PO abx IV abx per ID podiatry follow up Vascular consult await MRI r/o osteo # Diabetes Mellitus start PO meds statins / ACEi / metformin A1c diabetic education # hyperlipedimia start statins # Diabetic neuropathy goal to maintain A1c = 6 Problem List - Problems (1) Diabetic foot ulcer Code(s): E11.621 - TYPE 2 DIABETES MELLITUS WITH FOOT ULCER; L97.509 - NON- PRESSURE CHRONIC ULCER OTH PRT UNSP FOOT W UNSP SEVERITY Qualifiers: Diabetic foot ulcer location: other Diabetes mellitus type: type 2 Laterality: left Non-pressure ulcer stage: with fat layer exposed Qualified Code(s): E11.621 - Type 2 diabetes mellitus with foot ulcer; L97.522 - Non- pressure chronic ulcer of other part of left foot with fat layer exposed (2) Diabetes mellitus Code(s): E11.9 - TYPE 2 DIABETES MELLITUS WITHOUT COMPLICATIONS Qualifiers: Diabetes mellitus type: type 2 Diabetes mellitus fci insulin use: with fci use Diabetes mellitus complication detail: with other skin ulcer (3) Neuropathy due to type 2 diabetes mellitus Code(s): E11.40 - TYPE 2 DIABETES MELLITUS WITH DIABETIC NEUROPATHY, UNSP (4) Obesity Code(s): E66.9 - OBESITY, UNSPECIFIED Qualifiers: Obesity type: due to excess calories Obesity classification: adult class 1 (BMI 30 - 34.9) Serious obesity comorbidity presence: with serious comorbidity
--- NOTE | 2018-06-07 13:43 | PN ---
Progress Note, Physician History of Present Illness: doing well no issues wound healing well awaiting for mri - Current Medication List Current Medications: Active Medications Aspirin (Asa -) 81 mg PO DAILY [facility] Last Admin: 06/07/18 10:11 Dose: 81 mg Atorvastatin Calcium (Lipitor -) 40 mg PO HS [facility] Last Admin: 06/06/18 21:02 Dose: 40 mg Docusate Sodium (Colace -) 200 mg PO BID [facility] Last Admin: 06/07/18 10:12 Dose: Not Given Piperacillin Sod/Tazobactam (Sod 3.375 gm/ Dextrose) 50 mls @ 100 mls/hr IVPB Q8H-IV [facility]; Protocol Last Admin: 06/07/18 10:12 Dose: 100 mls/hr Ibuprofen (Motrin -) 600 mg PO Q8H [facility] Insulin Aspart (Novolog Vial Sliding Scale -) 1 vial SQ ACHS [facility]; Protocol Insulin Detemir (Levemir Vial) 15 units SQ BID@0700,2200 [facility] Lisinopril (Prinivil) 10 mg PO BID [facility] Metformin HCl (Glucophage -) 500 mg PO BID@0700,1630 [facility] Last Admin: 06/07/18 06:32 Dose: 500 mg - Objective Vital Signs: Vital Signs Temperature 97.9 F 06/07/18 06:00 Pulse Rate 92 H 06/07/18 10:00 Respiratory Rate 18 06/07/18 10:00 Blood Pressure 148/86 06/07/18 10:00 O2 Sat by Pulse Oximetry (%) 96 06/07/18 09:00 Constitutional: Yes: No Distress, Calm Cardiovascular: Yes: Regular Rate and Rhythm Respiratory: Yes: Regular, CTA Bilaterally Gastrointestinal: Yes: Normal Bowel Sounds, Soft Musculoskeletal: Yes: WNL Extremities: Yes: WNL Wound/Incision: Yes: Clean/Dry Neurological: Yes: Alert, Oriented Labs: CBC, BMP 06/07/18 06:50 06/07/18 06:50 Assessment/Plan r/o osteo left foot wound infection dm hld htn plan await for mri results continue abx rest as per the team patient stable
[2018-06-07] MEDS: IBUPROFEN 600 MG TABLET (FP) PO SCH ×2 (15:55→21:05)
[2018-06-07] MEDS: ATORVASTATIN CA 40 MG TABLET (FP) PO SCH (21:07)
[2018-06-07] MEDS: INSULIN (LEVEMIR) 100 UNITS/ML UNITS SQ SCH (21:07)
[2018-06-07] MEDS ORDERED: INSULIN (NOVOLOG) ASPART 100 UNITS/ML 10ML VIAL ONE (21:13)
--- NOTE | 2018-06-07 22:18 | CONSULT ---
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 - Past Medical History Cardio/Vascular: Yes: Murmur Gastrointestinal: Yes: Pancreatitis (2/2 to hyperlipedimia ( trig >5000)) Infectious Disease: Yes: Other (lymes) Psych: Yes: Anxiety Endocrine: Yes: Diabetes Mellitus - Past Surgical History Past Surgical History: Yes: Appendectomy, Bariatric Surgery - Alcohol/Substance Use Hx Alcohol Use: Yes History of Substance Use: reports: None - Smoking History Smoking history: Never smoked - Social History ADL: Family Assistance History of Recent Travel: No Home Medications - Allergies Allergies/Adverse Reactions: Allergies Allergy/AdvReac Type Severity Reaction Status Date / Time No Known Allergies Allergy Verified 06/05/18 12:41 - Home Medications Home Medications: Ambulatory Orders NK [No Known Home Medication] 06/05/18 Review of Systems - Review of Systems Constitutional: reports: Loss of Appetite, Malaise Eyes: reports: No Symptoms HENT: reports: No Symptoms Neck: reports: No Symptoms Cardiovascular: reports: No Symptoms Respiratory: reports: No Symptoms Gastrointestinal: reports: No Symptoms Genitourinary: reports: No Symptoms Breasts: reports: No Symptoms Reported Musculoskeletal: reports: Extremity Pain, Muscle Cramps, Muscle Weakness Integumentary: reports: No Symptoms Neurological: reports: Weakness Endocrine: reports: Unexplained Weight Gain Physical Exam Vital Signs: Vital Signs Temperature 97.9 F 06/07/18 14:29 Pulse Rate 78 06/07/18 21:00 Respiratory Rate 18 06/07/18 21:00 Blood Pressure 132/72 06/07/18 21:00 O2 Sat by Pulse Oximetry (%) 96 06/07/18 09:00 Constitutional: Yes: Calm Eyes: Yes: EOM Intact HENT: Yes: Normocephalic Neck: Yes: Trachea Midline Cardiovascular: Yes: Regular Rate and Rhythm Respiratory: Yes: CTA Bilaterally Gastrointestinal: Yes: Normal Bowel Sounds ...Rectal Exam: Yes: Deferred Musculoskeletal: Yes: Back Pain, Joint Swelling, Muscle Pain, Muscle Weakness Extremities: Yes: Delayed Capillary Refill Edema: No Wound/Incision: Yes: Dressing Removed, Draining Neurological: Yes: Alert, Oriented, Weakness Labs: CBC, BMP 06/07/18 06:50 06/07/18 06:50 Problem List - Problems (1) Diabetes mellitus Code(s): E11.9 - TYPE 2 DIABETES MELLITUS WITHOUT COMPLICATIONS Qualifiers: Diabetes mellitus type: type 2 Diabetes mellitus senior care insulin use: with terminologist use Diabetes mellitus complication detail: with other skin ulcer (2) Diabetic foot ulcer Code(s): E11.621 - TYPE 2 DIABETES MELLITUS WITH FOOT ULCER; L97.509 - NON- PRESSURE CHRONIC ULCER OTH PRT UNSP FOOT W UNSP SEVERITY Qualifiers: Diabetic foot ulcer location: other Diabetes mellitus type: type 2 Laterality: left Non-pressure ulcer stage: with fat layer exposed Qualified Code(s): E11.621 - Type 2 diabetes mellitus with foot ulcer; L97.522 - Non- pressure chronic ulcer of other part of left foot with fat layer exposed (3) Neuropathy due to type 2 diabetes mellitus Code(s): E11.40 - TYPE 2 DIABETES MELLITUS WITH DIABETIC NEUROPATHY, UNSP (4) Obesity Code(s): E66.9 - OBESITY, UNSPECIFIED Qualifiers: Obesity type: due to excess calories Obesity classification: adult class 1 (BMI 30 - 34.9) Serious obesity comorbidity presence: with serious comorbidity Assessment/Plan Current Active Problems Diabetes mellitus (Acute) Diabetic foot ulcer (Acute) Neuropathy due to type 2 diabetes mellitus (Acute) Obesity (Acute) Abnormal Lab Results 06/07/18 06/07/18 06:50 10:20 Anion Gap 6 L Random Glucose 218 H Hemoglobin A1c % 8.5 H AST 14 L Albumin 3.3 L Triglycerides 199 H Total LDL Cholesterol 125 H HDL Cholesterol 36 L Laboratory Results - last 24 hr 06/07/18 06/07/18 06/07/18 06:04 06:50 06:50 WBC 9.9 RBC 4.71 Hgb 13.0 Hct 40.3 MCV 85.5 MCH 27.7 MCHC 32.3 RDW 13.7 Plt Count 238 MPV 9.6 Absolute Neuts (auto) 6.3 Neutrophils % 63.0 Lymphocytes % 25.2 Monocytes % 8.0 Eosinophils % 3.3 Basophils % 0.5 Nucleated RBC % 0 Sodium 138 Potassium 4.5 Chloride 102 Carbon Dioxide 30 Anion Gap 6 L BUN 16 Creatinine 1.0 Creat Clearance w eGFR > 60 POC Glucometer 210 Random Glucose 218 H Hemoglobin A1c % Calcium 8.7 Total Bilirubin 0.6 AST 14 L ALT 37 Alkaline Phosphatase 91 Total Protein 7.1 Albumin 3.3 L Triglycerides 199 H Cholesterol 184 Total LDL Cholesterol 125 H HDL Cholesterol 36 L 06/07/18 06/07/18 06/07/18 10:20 17:21 21:11 WBC RBC Hgb Hct MCV MCH MCHC RDW Plt Count MPV Absolute Neuts (auto) Neutrophils % Lymphocytes % Monocytes % Eosinophils % Basophils % Nucleated RBC % Sodium Potassium Chloride Carbon Dioxide Anion Gap BUN Creatinine Creat Clearance w eGFR POC Glucometer 190 203 Random Glucose Hemoglobin A1c % 8.5 H Calcium Total Bilirubin AST ALT Alkaline Phosphatase Total Protein Albumin Triglycerides Cholesterol Total LDL Cholesterol HDL Cholesterol plan: bgm qid novolog insulin bid levemir 15 units metformin 500mg bid januvia 100mg daily
[2018-06-08] MEDS ORDERED: DEXTROSE 5%-WATER - 50 ML IVPB ONE ×3 (01:17→17:46)
[2018-06-08] MEDS ORDERED: PIPERACILLIN/TAZOBACTAM 3.375 GM VIAL IVPB ONE ×3 (01:17→17:46)
[2018-06-08] MEDS: PIPERACILLIN/TAZOB 3.375 GM 3.375 GM in DEXTROSE 5%-WATER - 50 ML IVPB SCH ×3 (01:50→17:51)
[2018-06-08] MEDS: metFORMIN HCL 500 MG TABLET (FP) PO SCH ×2 (06:45→15:54)
[2018-06-08] MEDS: INSULIN SLIDING SCALE (NOVOLOG) 1 VIAL SQ SCH ×3 (06:46→17:40)
[2018-06-08] MEDS: INSULIN (LEVEMIR) 100 UNITS/ML UNITS SQ SCH (06:48)
[2018-06-08] MEDS: IBUPROFEN 600 MG TABLET (FP) PO SCH ×2 (06:52→12:53)
[2018-06-08] MEDS ORDERED: sitaGLIPtin PHOSPHATE 100 MG TABLET (FP) PO SCH (07:00)
[2018-06-08 07:35] LABS: BASO % 0.4 % (0-2.0); HEMATOCRIT 39.3 % (35.4-49); HEMOGLOBIN 12.9 GM/dL (11.7-16.9); LYMPH % 23.8 % (8-40); MCH 27.9 pg (25.7-33.7); MCHC 32.8 g/dl (32.0-35.9); MEAN CELL VOLUME 84.9 fl (80-96); MEAN PLT VOLUME 9.4 fl (7.5-11.1); MONO % 8.1 % (3.8-10.2); NEUT % 64.7 % (42.8-82.8); PLATELET COUNT 226 K/MM3 (134-434); RBC 4.63 M/mm3 (4.00-5.60); RDW 13.8 % (11.9-15.9); WHITE BLOOD COUNT 9.7 K/mm3 (4.0-10.0)
[2018-06-08 07:51] LABS: ANION GAP 7 MMOL/L (8-16); BLOOD UREA NITROGEN 19 mg/dL (7-18); CALCIUM 8.5 mg/dL (8.5-10.1); CHLORIDE 105 mmol/L (98-107); CO2 30 mmol/L (21-32); GLUCOSE,RANDOM 181 mg/dL (74-106); POTASSIUM 4.5 mmol/L (3.5-5.1); SODIUM 141 mmol/L (136-145)
--- NOTE | 2018-06-08 09:11 | PN ---
Progress Note (short form) - Note Progress Note: FUV left foot. wound greatly improved, grade 1 no drainage at this tome, -mal odor, +improved cellulitis, -drainage, wbc=9.7 improved cellulitis grade 1 wound Awaiting MRI results. Will decide on care once that is read. IVABX as per ID. will follow. Orthowedge shoe as necessary.
[2018-06-08] MEDS: LISINOPRIL 5 MG TABLET (FP) PO SCH (10:28)
[2018-06-08] MEDS: ASPIRIN 81 MG CHEWABLE TABLETS PO SCH (10:29)
[2018-06-08] MEDS: DOCUSATE SODIUM 100 MG CAPSULE (FP) PO SCH (10:29)
--- NOTE | 2018-06-08 13:39 | DS ---
Physical Examination Vital Signs: Vital Signs Temperature 98.2 F 06/08/18 10:38 Pulse Rate 84 06/08/18 10:38 Respiratory Rate 19 06/08/18 10:38 Blood Pressure 135/74 06/08/18 10:38 O2 Sat by Pulse Oximetry (%) 98 06/08/18 09:00 Findings/Remarks: 42 y/o male admitted and treated for infected wd on lt ft. Wd healed. MRI neg for osteomyelitis. Constitutional: Yes: Well Nourished Eyes: Yes: Conjunctiva Clear HENT: Yes: Atraumatic, Normocephalic Neck: Yes: Supple, Trachea Midline Cardiovascular: Yes: Regular Rate and Rhythm Respiratory: Yes: Regular, CTA Bilaterally Gastrointestinal: Yes: Normal Bowel Sounds, Soft, Abdomen, Obese ...Rectal Exam: Yes: Deferred Renal/: Yes: WNL Breast(s): Yes: WNL Musculoskeletal: Yes: WNL Extremities: Yes: WNL Edema: No Peripheral Pulses WNL: Yes Integumentary: Yes: WNL Neurological: Yes: Alert, Oriented ...Motor Strength: WNL Psychiatric: Yes: Alert, Oriented Labs: CBC, BMP 06/08/18 06:50 06/08/18 06:50 Discharge Summary Reason For Visit: DIABETIC FOOT ULCER Current Active Problems Diabetes mellitus (Acute) Diabetic foot ulcer (Acute) Neuropathy due to type 2 diabetes mellitus (Acute) Obesity (Acute) Condition: Good - Instructions Disposition: HOME - Home Medications Comprehensive Discharge Medication List: Ambulatory Orders NK [No Known Home Medication] 06/05/18
[2018-06-08 15:07] VITALS: BP 135/77; PULSE 79; TEMP 98.3
--- NOTE | 2018-06-08 16:12 | PN ---
Progress Note, Physician History of Present Illness: doing well no issues wound healing well mri seen and results noted - Current Medication List Current Medications: Active Medications Aspirin (Asa -) 81 mg PO DAILY [facility] Last Admin: 06/08/18 10:29 Dose: 81 mg Atorvastatin Calcium (Lipitor -) 40 mg PO HS [facility] Last Admin: 06/07/18 21:07 Dose: 40 mg Docusate Sodium (Colace -) 200 mg PO BID [facility] Last Admin: 06/08/18 10:29 Dose: Not Given Piperacillin Sod/Tazobactam (Sod 3.375 gm/ Dextrose) 50 mls @ 100 mls/hr IVPB Q8H-IV [facility]; Protocol Last Admin: 06/08/18 10:29 Dose: 100 mls/hr Ibuprofen (Motrin -) 600 mg PO Q8H [facility] Last Admin: 06/08/18 12:53 Dose: 600 mg Insulin Aspart (Novolog Vial Sliding Scale -) 1 vial SQ [facility]; Protocol Last Admin: 06/08/18 12:06 Dose: 2 units Insulin Detemir (Levemir Vial) 15 units SQ BID@0700,2200 [facility] Last Admin: 06/08/18 06:48 Dose: 15 units Lisinopril (Prinivil) 10 mg PO BID [facility] Last Admin: 06/08/18 10:28 Dose: 10 mg Metformin HCl (Glucophage -) 500 mg PO BID@0700,1630 [facility] Last Admin: 06/08/18 15:54 Dose: 500 mg Sitagliptin Phosphate (Januvia -) 100 mg PO DAILY@0700 [facility] Last Admin: 06/08/18 06:45 Dose: 100 mg - Objective Vital Signs: Vital Signs Temperature 98.3 F 06/08/18 15:06 Pulse Rate 79 06/08/18 15:06 Respiratory Rate 18 06/08/18 15:06 Blood Pressure 135/77 06/08/18 15:06 O2 Sat by Pulse Oximetry (%) 98 06/08/18 09:00 Constitutional: Yes: No Distress, Calm, Obese Cardiovascular: Yes: Regular Rate and Rhythm Respiratory: Yes: Regular, CTA Bilaterally Gastrointestinal: Yes: Normal Bowel Sounds, Soft Musculoskeletal: Yes: WNL Extremities: Yes: Other Wound/Incision: Yes: Open to air, Other (healing well on the plantar surface of the left foot) Neurological: Yes: Alert, Oriented Psychiatric: Yes: Alert, Oriented Labs: CBC, BMP 06/08/18 06:50 06/08/18 06:50 Assessment/Plan patient coming wiht non healing ulcer of the left foot wound not healing for a long time now patient had chills feels better now r/o osteo left foot wound infection dm hld htn plan can change to oral abx augmentin 875 mg po bid for 5 more days off loading on the foot rest as per dr. bennett
[2018-06-08] MEDS ORDERED: INSULIN (LEVEMIR) 100 UNITS/ML UNITS SQ ONE (19:15)
== END 2018-06-08 19:09 | disposition home or self-care (01) | DRG 638 ==
LOC: JER 12:28 → JERBED 17:37 → J5S 23:27
PROVIDERS: ADMIT Family Medicine; ATTEND Family Medicine
DX: E11.621 Type 2 diabetes mellitus with foot ulcer (principal); L03.116 Cellulitis of left lower limb; E11.65 Type 2 diabetes mellitus with hyperglycemia; I10 Essential (primary) hypertension; Z98.84 Bariatric surgery status; E11.40 Type 2 diabetes mellitus with diabetic neuropathy, unspecified; F41.9 Anxiety disorder, unspecified; E66.9 Obesity, unspecified; Z68.38 Body mass index [BMI] 38.0-38.9, adult; Z91.19 Patient's noncompliance with other medical treatment and regimen; Z79.4 Long term (current) use of insulin; E78.5 Hyperlipidemia, unspecified; Z79.84 Long term (current) use of oral hypoglycemic drugs
CPT/HCPCS: 36415; 73630-TC-LT; 73718-LT; 80048; 80053; 80061; 82962; 83036; 83605; 83721; 83735; 85025; 85027; 85651; 86140; 87040; 87070; 87205; 99282-25